=== PATIENT | female | born 1950 | race Caucasian/White ===

== ENCOUNTER 2017-09-12 07:19 | Day surgery (SDC) | payer OTHER ==
[~2017-09-12 07:19] MED LIST: DICLOFENAC GEL; LEVSOD75
== END 2017-09-12 22:57 | disposition home or self-care (01) ==
LOC: MOI MAM 07:19
PROC: 0HBU3ZX Excision of Left Breast, Percutaneous Approach, Diagnostic (ICD-10-PCS; principal; 2017-09-12)
DX: C50.912 Malignant neoplasm of unspecified site of left female breast (principal); Z17.0 Estrogen receptor positive status [ER+]
CPT/HCPCS: 19083; 77065; 88305; 88360; A4648

== ENCOUNTER 2017-10-11 09:15 | Day surgery (SDC) | payer OTHER ==
[~2017-10-11] VITALS: Ht 157.5 cm; Wt 68.0 kg
[~2017-10-11 09:15] MED LIST changes: +Advil200 M1 PO; +Hair, Skin & N1 EACH PO; +LEVSOD75 PO; +LOSA50 PO; +MELA3 PO
== END 2017-10-11 23:46 | disposition home or self-care (01) ==
LOC: NM 09:15 → ORSCMMR 09:15 → NM 09:16 → ORSCMMR 09:16 → NM 10:00 → ORSCMMR 23:46
PROVIDERS: Surgery
PROC: 07B60ZX Excision of Left Axillary Lymphatic, Open Approach, Diagnostic (ICD-10-PCS; principal; 2017-10-11 11:15)
PROC: 0HTV0ZZ Resection of Bilateral Breast, Open Approach (ICD-10-PCS; principal; 2017-10-11 11:15)
DX: C50.911 Malignant neoplasm of unspecified site of right female breast (principal); C50.812 Malignant neoplasm of overlapping sites of left female breast; L82.0 Inflamed seborrheic keratosis; D36.0 Benign neoplasm of lymph nodes; Z80.3 Family history of malignant neoplasm of breast; Z40.01 Encounter for prophylactic removal of breast; I10 Essential (primary) hypertension; E03.9 Hypothyroidism, unspecified; Z79.899 Other long term (current) drug therapy
CPT/HCPCS: 38792; 88307; 88342; A9520; J0690; J1100; J2250; J2405; J2550; J2765; J3010; J7120; Q9968

== ENCOUNTER → 2018-10-03 | Outpatient (CLI) | payer MEDICARE | END | disposition home or self-care (01) | LOC: LAB SHORT 11:05 → LAB 11:05 | DX: A49.9 Bacterial infection, unspecified (principal) | CPT/HCPCS: 87070; 87077; 87147; 87186; 87205 ==

== ENCOUNTER → 2019-11-27 | Outpatient (CLI) | payer MEDICARE ==
[2019-11-27 13:38] LABS: Anion Gap 4 mmol/L (6-16); Blood Urea Nitrogen 16 mg/dL (8-24); Bun/Creatinine Ratio 20.2 (12.0-20.0); CHOL/HDL RATIO 3.9; CO2, Blood 29 mmol/L (21-32); Calcium, Blood 8.6 mg/dL (8.5-10.1); Chloride, Blood 106 mmol/L (98-108); Cholesterol 140 mg/dL (50-200); Creatinine, Blood 0.79 mg/dL (0.40-1.00); Glomerular Filtration Rate >60 (60-); Glucose, Blood 146 mg/dL (70-99); HDL Cholesterol 36 mg/dL (>39); LDL/HDL RATIO 2.2; Low Density Lipoprotein Chol 81 mg/dL (0-110); Potassium, Blood 3.5 mmol/L (3.5-5.5); Sodium, Blood 139 mmol/L (136-145); Triglycerides 117 mg/dL (30-160); Very Low Density Lipoprot Chol 23 mg/dL (6-32)
[2019-11-27 13:44] LABS: Thyroid Stimulating Hormone 0.678 uIU/mL (0.360-4.800)
== END | disposition home or self-care (01) ==
LOC: LAB SHORT 08:15 → LAB 08:15
PROVIDERS: Physician Assistant
DX: I10 Essential (primary) hypertension (principal); E03.9 Hypothyroidism, unspecified; E87.6 Hypokalemia
CPT/HCPCS: 80048; 80061; 84443

== ENCOUNTER 2023-03-22 07:20 | Day surgery (SDC) | payer MEDICARE ==
[~2023-03-22] VITALS: Ht 157.5 cm; Wt 70.8 kg
[2023-03-22] MEDS ORDERED: HYDCHL25 PO (07:33)
--- NOTE | 2023-03-22 07:38 | NUR ---
03/22/23 0738 Justin Wiley CALL LIGHT WITHIN REACH. TETRACAINE IN LEFT EYE AT 0734 AND PLEDGETT IN AT 0735
[2023-03-22 08:49] VITALS: BP 123/80
== END 2023-03-22 09:01 | disposition home or self-care (01) ==
LOC: ORSCSDS 07:20
PROVIDERS: Student in an Organized Health Care Education/Training Program
PROC: 08RK3JZ Replacement of Left Lens with Synthetic Substitute, Percutaneous Approach (ICD-10-PCS; principal; 2023-03-22 08:30)
DX: H25.12 Age-related nuclear cataract, left eye (principal); Z96.1 Presence of intraocular lens; I10 Essential (primary) hypertension; Z79.899 Other long term (current) drug therapy
CPT/HCPCS: J2001; J2250; J7040; V2632

== ENCOUNTER → 2023-09-29 | Outpatient (CLI) | payer MEDICARE ==
[~2023-09-29] MED LIST changes: +HYDCHL25 PO
== END ==
LOC: LAB 15:43 → LAB SHORT 15:43
DX: D48.5 Neoplasm of uncertain behavior of skin (principal)
CPT/HCPCS: 88305